=== PATIENT | male | born 1975 | race Caucasian/White ===

== ENCOUNTER → 2016-04-08 | Outpatient (CLI) | payer BC ==
[2016-04-08 18:39] VITALS: BP 137/89
== END ==
LOC: MHUC 17:06
PROVIDERS: ATTEND Physician Assistant
DX: J40 Bronchitis, not specified as acute or chronic (principal)
CPT/HCPCS: 99213

== ENCOUNTER 2016-04-30 18:21 | Emergency (ER) | payer BC ==
[~2016-04-30] VITALS: Ht 175.3 cm; Wt 118.0 kg
[2016-04-30 19:21] LABS: BILIRUBIN,URINE Negative (Negative); COLOR,URINE Yellow; GLUCOSE, URINE (UA) Negative (Negative); LEUKOCYTE ESTERASE ,URINE Negative (Negative); UROBILINOGEN,URINE 0.2 mg/dL (0.2-1.0)
[2016-04-30 19:27] LABS: CLARITY,URINE Slightly Cloudy
[2016-04-30 19:30] LABS: BASOPHILS % (AUTO) 1 % (0-2); EOSINOPHILS # (AUTO) 0.5 10^3uL; EOSINOPHILS % (AUTO) 4 % (0-4); LYMPHOCYTES # (AUTO) 2.9 X10^3; MEAN CORPUSCULAR VOLUME 89 FL (80-100); MEAN PLATELET VOLUME 10.1 FL (6.0-9.5); MONOCYTES # (AUTO) 1.2 X10^3; MONOCYTES % (AUTO) 10 % (3-11); NEUTROPHILS # (AUTO) 6.5 X10^3; NEUTROPHILS % (AUTO) 59 % (51-67); PLATELET COUNT 251 10^3uL (150-450); WHITE BLOOD COUNT 11.09 10^3uL (4.0-11.0)
[2016-04-30 19:31] LABS: MEAN CORPUSCULAR HEMOGLOBIN 32.2 PG (26.0-34.0); MEAN CORPUSCULAR HGB CONC 36.2 g/dL (31.0-37.0)
[2016-04-30 19:32] LABS: URINE CENTRIFUGED VOLUME 12 mL
[2016-04-30 19:41] LABS: ALBUMIN 4.1 g/dL (3.4-5.0); ANION GAP 15.3 MEQ/L (3-15); CALCULATED IONIZED CALCIUM 4.2 mg/dL (3.8-4.6); TOTAL PROTEIN 7.1 g/dL (6.4-8.5)
[2016-04-30] MEDS ORDERED: LIDOCAINE PF 1% (XYLOCAINE) 2 ML VIAL INJ ONE (20:20)
[2016-04-30] MEDS ORDERED: cefTRIAXone 1 GM (ROCEPHIN) VIAL IM ONE (20:20)
[2016-04-30] MEDS ORDERED: LEVOFLOXACIN 250 MG TAB (LEVAQUIN) PO SCH (20:20)
[2016-04-30 21:02] VITALS: BP 125/92
[2016-05-01 12:37] LABS: GC-CHLAMYDIA SOURCE URINE; N.gonorrhoeae SOURCE URINE
== END 2016-04-30 20:57 | disposition home or self-care (01) ==
LOC: ED 18:22
DX: N45.1 Epididymitis (principal)
CPT/HCPCS: 36415; 76870; 80053; 81003; 81015; 85025; 86140; 87491; 87591; 96372; 99282; J0696; J2001; 99283

== ENCOUNTER → 2016-05-02 | Outpatient (CLI) | payer BC | LOC: RAD 17:18 | PROVIDERS: ATTEND Internal Medicine | DX: R10.31 Right lower quadrant pain (principal); R30.0 Dysuria | CPT/HCPCS: 74176 ==